=== PATIENT | male | born 1980 | race Caucasian/White ===

== ENCOUNTER → 2017-09-24 | Outpatient (CLI) | payer OTHER ==
--- NOTE | 2017-09-24 09:32 | MR ---
EXAMINATION TYPE: MR knee LT wo con DATE OF EXAM: 09/24/2017 COMPARISON: NONE HISTORY: 37-year-old male with left knee pain TECHNIQUE: Multiplanar, multisequence imaging of the left knee is performed without IV contrast. FINDINGS: There is some mild increased signal along the intact ACL. PCL, MCL, and LCL complex appear intact. There is an oblique tear extending throughout the posterior horn and body of the medial meniscus with suggestion of an incomplete horizontal cleavage tear involving the anterior horn. The lateral meniscus is intact. Overall tricompartmental articular cartilage volumes are maintained. Extensor mechanism is intact. Mild nonspecific anterior soft tissue swelling. Small knee joint effusion. No Mota's cyst. 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 No suspicious bone marrow replacement. IMPRESSION: 1. Large oblique tear extending throughout the posterior horn and body of the medial meniscus with an incomplete horizontal cleavage tear involving the anterior horn. 2. Mild increased signal within the ACL could represent a low-grade sprain. 3. No chondral injury identified. 4. 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
== END | disposition home or self-care (01) ==
LOC: RADMRIMAIN 07:26
PROVIDERS: ATTEND Internal Medicine
DX: S83.242A Other tear of medial meniscus, current injury, left knee, initial encounter (principal); Q27.8 Other specified congenital malformations of peripheral vascular system